=== PATIENT | female | born 1965 | race Caucasian/White ===

== ENCOUNTER 2022-05-15 10:39 | Day surgery (SDC) | payer BC, SELFPAY ==
[2022-05-15] MEDS: LACTATED RINGERS 1000 ML 1,000 ML 100 ML IV (11:00)
[2022-05-15 11:08] VITALS: BMI 31.3
[2022-05-15 11:11] VITALS: BP 157/83; PULSE 85; RESP 16; TEMP 36.5; O2SAT 95
[2022-05-15] MEDS: KETOROLAC 15 MG/ML inj IVP (12:12)
[2022-05-15] MEDS: BUPIVACAINE 0.25% 30 ML 10 ML INJECTION (12:30)
[2022-05-15] MEDS: LIDOCAINE 1% MDV 10 ML INJECTION (12:30)
--- NOTE | 2022-05-15 12:55 | P.GYNPRC_ITS ---
Procedure Note Date Seen: 05/15/22 Procedure Details: PREOPERATIVE DIAGNOSIS: 1. Postmenopausal bleeding. 2. Submucosal uterine fibroid. 3. Stenotic cervix. POSTOPERATIVE DIAGNOSIS: 1. Postmenopausal bleeding. 2. Submucosal uterine fibroid. 3. Stenotic cervix. NAME OF PROCEDURE: 1. Hysteroscopy. 2. Submucosal myomectomy. SURGEON: Samir. ANESTHESIA: Monitored anesthesia care and paracervical block. COMPLICATIONS: None.. ESTIMATED BLOOD LOSS: 10 mL. FINDINGS: Submucosal myoma arising from the posterior aspect of the uterine cavity. PATHOLOGY SPECIMENS: 1. Fragments of submucosal myoma and overlying endometrium. PROCEDURE: The patient was premedicated with vaginal misoprostol 400 mcg. After obtaining informed consent, the patient was taken to the operating room where she received monitored anesthesia care. She was prepared and draped in the normal sterile fashion, in the dorsal lithotomy position. An open-sided bivalve speculum was introduced into the vagina and the cervix visualized. The anterior lip of the cervix was grasped with a single-tooth tenaculum for traction. A paracervical block was then administered using a total of 20 mL of a 50/50 mixture of 0.25% Marcaine and 1% lidocaine plain. The cervix was found to be extremely stenotic. The posterior lip of the cervix was also grasped for traction. I was initially unable to pass the smallest Hegar dilator in to the endocervical canal. A small set of cervical dilators was brought to the ope rating room, and I was able to pass the smallest dilator into the uterine cavity. The cervix was serially dilated with progressively larger dilators to a #7 Hegar dilator. A hysteroscope was then advanced under direct visualization through the cervix into the uterine cavity. Sterile normal saline was used as distending medium. The uterine cavity was carefully inspected with the findings noted above. Pictures were taken for documentation purposes. The TruClear morcellator was inserted through the operating channel in the hysteroscope. The morcellator with dense tissue blade was used to remove the submucosal portion of the fibroid. The hysteroscope was then removed. The tenaculum was removed. All instruments were then removed. The patient tolerated the procedure well. Sponge, lap, needle, and instrument counts reported as correct x2. The patient was taken to the recovery room awake in a stable condition. She received 15 mg of IV Toradol intraoperatively.
--- NOTE | 2022-05-15 13:00 | W.ANESCHARGE ---
Anesthesia Charges Start Date/Time Anesthesia Start Date: 05/15/22 Anesthesia Start Time: 12:03 Stop Date/Time Anesthesia Stop Date: 05/15/22 Anesthesia Stop Time: 12:58 Summary Emergency: No
[2022-05-15 13:05] VITALS: BP 115/50; PULSE 77; RESP 14; TEMP 36.9; O2SAT 97
--- NOTE | 2022-05-15 13:05 | W.ANESCHARGE ---
Anesthesia Charges Start Date/Time Anesthesia Start Date: 05/15/22 Anesthesia Start Time: 12:03 Stop Date/Time Anesthesia Stop Date: 05/15/22 Anesthesia Stop Time: 12:58 Summary Emergency: No
[2022-05-15 13:20] VITALS: BP 122/68; PULSE 65; RESP 14; O2SAT 97
[2022-05-15 13:34] VITALS: BP 126/65; PULSE 64; RESP 14; O2SAT 98
== END 2022-05-15 13:40 | disposition home or self-care (01) ==
PROVIDERS: Visit Provider Obstetrics & Gynecology
PROC: 0UDB8ZZ Extraction of Endometrium, Via Natural or Artificial Opening Endoscopic (ICD-10-PCS; CPT 58558; principal; 2022-05-15 11:30)
DX: N95.0 Postmenopausal bleeding (principal); D25.0 Submucous leiomyoma of uterus; N88.2 Stricture and stenosis of cervix uteri
CPT/HCPCS: 58561; 00952; 88305; J1885; J2250; J2704; J3010; J3490; J7120